=== PATIENT | male | born 1975 | race African-American/Black ===

== ENCOUNTER 2025-06-03 23:01 | Inpatient (IN) | payer OTHER ==
[~2025-06-03] VITALS: Ht 170.2 cm; Wt 75.3 kg
[~2025-06-03 23:01] MED LIST: ACET-3385 PO; AMIO200T73 PO; EMPA10TA3 PO; FURO20TA4 PO; METO25XL PO; SENN-7 PO; SPIR-37 PO
[2025-06-03 23:18] LABS: PLATELET COUNT (AUTO) 224 K/uL (150-450); RED BLOOD CELL COUNT(AUTO) 4.16 MIL/uL (4.50-5.90); RED CELL DISTRIBUTION WIDTH 19.2 % (11.5-14.5); WHITE BLOOD COUNT (AUTO) 5.1 K/uL (4.5-11.0)
[2025-06-03 23:27] LABS: CALCIUM, TOTAL 8.4 mg/dL (8.8-10.5); CREATININE 1.27 mg/dL (0.60-1.30); GLOMERULAR FILTR. RATE CALC > 60 mL/min (>60); GLUCOSE,RANDOM 116 mg/dL (70-110); SODIUM SERUM 142 mmol/L (136-145); UREA NITROGEN, BLOOD 24 mg/dL (7-18)
[2025-06-03 23:37] LABS: TROPONIN I-HIGH SENSITIVITY 46 ng/L (<76)
[2025-06-04] VITALS (8 sets, daily range): BP systolic 107–141; BP diastolic 88–107; PULSE 69–103; RESP 17–33; TEMP 97.6–98.8; O2SAT 95–100
[2025-06-04] MEDS: FUROSEMIDE 20 MG/2 ML VIAL IVP ONE (00:24)
[2025-06-04] MEDS ORDERED: ONDANSETRON HCL 4 MG/2 ML VIAL IVP PRN (01:30)
[2025-06-04 02:18] LABS: APPEARANCE,URINE CLEAR (CLEAR); GLUCOSE, URINE (UA) NEGATIVE (NEGATIVE); LEUKOCYTE ESTERASE ,URINE NEGATIVE (NEGATIVE); NITRATE,URINE NEGATIVE (NEGATIVE); OCCULT BLOOD,URINE NEGATIVE (NEGATIVE); SPECIFIC GRAVITIY, URINE 1.009 (1.003-1.030)
[2025-06-04] MEDS: HEPARIN SODIUM,PORCINE 5,000 UNITS/ML VIAL SQ SCH (08:00)
[2025-06-04] MEDS: FUROSEMIDE 20 MG/2 ML VIAL IVP SCH (08:24)
[2025-06-04] MEDS: FAMOTIDINE 20 MG TABLET PO SCH (08:24)
[2025-06-04] MEDS: DOCUSATE SODIUM 100 MG CAPSULE PO SCH (08:24)
[2025-06-04 08:27] LABS: TROPONIN I-HIGH SENSITIVITY 41 ng/L (<76)
[2025-06-04 11:08] LABS: ABG BASE EXCESS 1.0 mmol/L (-2.0-3.0); ABG CARBOXYHEMOGLOBIN 0.6 % (0.5-1.5); ABG HCO3 25.4 mmol/L (21.0-28.0); ABG METHEMOGLOBIN 0.1 % (0.0-1.5); ABG OXYGEN CONTENT 17.6 mL/dL (15.0-23.0); ABG OXYGEN SATURATION 97.3 % (94.0-98.0); ABG OXYHEMOGLOBIN 96.6 % (94.0-98.0); ABG PCO2 38 mmHg (32.0-48.0); ABG PH 7.436 (7.350-7.450); ABG TOTAL HEMOGLOBIN 12.9 G/dL (13.5-17.5); ALLEN TEST, BLOOD GAS Positive; FRACTIONATED INSPIRED OXYGEN 35.0 % (21-100.0); PO2, ARTERIAL BG 92.1 mmHg (83.0-108.0); SITE, BLOOD GAS RT RADIAL; SOURCE, BLOOD GAS ARTERIAL; TEMPERATURE, FAHRENHEIT, BG 97.6 FAHREN (96.0-98.6)
[2025-06-04 11:09] LABS: ABG A-A DIFF O2 113.4 mmHg (10-20.0); O2 DEVICE,BLOOD GAS BIPAP (ROOM AIR); PATIENT RATE, BG 33.0 min.; SET RATE, BG 12.0 min.; SPONTANEOUS VT, BG 535 ml
[2025-06-04 12:44] LABS: PH,URINE DRUG SCREEN 5.5 (5.0-8.0)
[2025-06-04 12:51] LABS: ALCOHOL, URINE DRUG SCREEN NEGATIVE (NEGATIVE); AMPHET/METH SCREEN,URINE POSITIVE (NEGATIVE); BARBITURATE SCREEN, URINE NEGATIVE (NEGATIVE); CANNABINOID SCREEN,URINE NEGATIVE (NEGATIVE); COCAINE SCREEN,URINE NEGATIVE (NEGATIVE); METHADONE SCREEN, URINE NEGATIVE (NEGATIVE)
[2025-06-04] MEDS: FUROSEMIDE 40 MG/4 ML VIAL IVP SCH (20:43)
[2025-06-05 03:26] VITALS: BP 109/87; PULSE 77; RESP 17; TEMP 98.2; O2SAT 100
[2025-06-05 08:03] VITALS: BP 111/83; PULSE 86; RESP 18; TEMP 98.6; O2SAT 99
[2025-06-05] MEDS: METOPROLOL SUCCINATE 25 MG ER TABLET PO SCH (10:45)
[2025-06-05] MEDS: LOSARTAN POTASSIUM 25 MG TABLET PO SCH (10:45)
[2025-06-05] MEDS: SPIRONOLACTONE 25 MG TABLET PO SCH (11:43)
[2025-06-05 12:19] LABS: TROPONIN I-HIGH SENSITIVITY 41 ng/L (<76)
[2025-06-05 12:25] LABS: CALCIUM, TOTAL 8.4 mg/dL (8.8-10.5); CREATININE 1.36 mg/dL (0.60-1.30); GLOMERULAR FILTR. RATE CALC > 60 mL/min (>60); GLUCOSE,RANDOM 87 mg/dL (70-110); SODIUM SERUM 140 mmol/L (136-145); UREA NITROGEN, BLOOD 23 mg/dL (7-18)
[2025-06-05 13:02] VITALS: BP 100/85; PULSE 72; RESP 17; TEMP 98.1; O2SAT 99
[2025-06-05] MEDS: ACETAMINOPHEN 325 MG TABLET PO PRN (15:43)
[2025-06-05 16:16] VITALS: BP 99/68; PULSE 75; RESP 16; TEMP 98.2; O2SAT 98
[2025-06-05 18:21] LABS: TROPONIN I-HIGH SENSITIVITY 48 ng/L (<76)
[2025-06-05 19:38] VITALS: BP 98/69; PULSE 76; RESP 17; TEMP 98.4; O2SAT 97
[2025-06-06 00:21] VITALS: BP 112/75; PULSE 70; RESP 18; TEMP 98.1; O2SAT 95
[2025-06-06 04:50] VITALS: BP 111/83; PULSE 75; RESP 18; TEMP 98.2; O2SAT 97
[2025-06-06 06:43] LABS: CALCIUM, TOTAL 8.3 mg/dL (8.8-10.5); CREATININE 1.08 mg/dL (0.60-1.30); GLOMERULAR FILTR. RATE CALC > 60 mL/min (>60); GLUCOSE,RANDOM 90 mg/dL (70-110); PLATELET COUNT (AUTO) 229 K/uL (150-450); RED BLOOD CELL COUNT(AUTO) 4.34 MIL/uL (4.50-5.90); RED CELL DISTRIBUTION WIDTH 18.2 % (11.5-14.5); SODIUM SERUM 139 mmol/L (136-145); UREA NITROGEN, BLOOD 22 mg/dL (7-18); WHITE BLOOD COUNT (AUTO) 4.7 K/uL (4.5-11.0)
[2025-06-06 07:43] VITALS: BP 109/84; PULSE 74; RESP 18; TEMP 98.4; O2SAT 96
[2025-06-06 12:05] VITALS: BP 112/84; PULSE 70; RESP 18; TEMP 98.6; O2SAT 97
[2025-06-06 15:19] VITALS: BP 106/79; PULSE 84; RESP 18; TEMP 99; O2SAT 96
[2025-06-06 19:56] VITALS: BP 109/79; PULSE 91; RESP 19; TEMP 99.1; O2SAT 100
[2025-06-06] MEDS: FUROSEMIDE 40 MG TABLET PO SCH (20:05)
[2025-06-06] MEDS: MELATONIN 3 MG TABLET PO SCH (21:03)
[2025-06-07 00:03] VITALS: BP 98/69; PULSE 89; RESP 17; TEMP 99.1; O2SAT 97
[2025-06-07 05:23] VITALS: BP 101/87; PULSE 86; RESP 17; TEMP 98.4; O2SAT 97
[2025-06-07 06:23] LABS: PLATELET COUNT (AUTO) 249 K/uL (150-450); RED BLOOD CELL COUNT(AUTO) 4.52 MIL/uL (4.50-5.90); RED CELL DISTRIBUTION WIDTH 18.3 % (11.5-14.5); WHITE BLOOD COUNT (AUTO) 5.2 K/uL (4.5-11.0)
[2025-06-07 06:29] LABS: CALCIUM, TOTAL 8.7 mg/dL (8.8-10.5); CREATININE 1.09 mg/dL (0.60-1.30); GLOMERULAR FILTR. RATE CALC > 60 mL/min (>60); GLUCOSE,RANDOM 89 mg/dL (70-110); SODIUM SERUM 135 mmol/L (136-145); UREA NITROGEN, BLOOD 22 mg/dL (7-18)
[2025-06-07 07:16] VITALS: BP 113/88; PULSE 83; RESP 18; TEMP 98.5; O2SAT 96
== END 2025-06-07 10:20 | disposition left against medical advice (07) | DRG 194 ==
LOC: EMS 23:01 → EDH 06-04 01:25 → 5S 06-04 09:45
PROVIDERS: ADMIT Internal Medicine; ATTEND Internal Medicine
PROC: 5A09357 Assistance with Respiratory Ventilation, Less than 24 Consecutive Hours, Continuous Positive Airway Pressure (ICD-10-PCS; principal; 2025-06-04)
DX: I11.0 Hypertensive heart disease with heart failure (principal); J96.01 Acute respiratory failure with hypoxia; I50.23 Acute on chronic systolic (congestive) heart failure; F19.10 Other psychoactive substance abuse, uncomplicated; I42.9 Cardiomyopathy, unspecified; F17.210 Nicotine dependence, cigarettes, uncomplicated; I25.10 Atherosclerotic heart disease of native coronary artery without angina pectoris; Z91.199 Patient's noncompliance with other medical treatment and regimen due to unspecified reason; Z86.73 Personal history of transient ischemic attack (TIA), and cerebral infarction without residual deficits
CPT/HCPCS: 71045; 80048; 80307; 81003; 82805; 83880; 84484; 85025; 87081; 93005; 93306; 94660; 99285; J1644; J1938; 36415-L1; 36415-TC